=== PATIENT | female | born 1995 | race Caucasian/White ===

== ENCOUNTER 2016-12-10 10:19 | Emergency (ER) | payer BC ==
[2016-12-10] MEDS ORDERED: NS 0.9% 1000 ML* 1,000 ML IV ONE (12:04)
[2016-12-10 12:10] LABS: Hematocrit 41 % (35-47); Hemoglobin 12.8 g/dl (12.0-16.0); Mean Corpuscular HGB Conc 32 g/dl (31-36); Mean Corpuscular Hemoglobin 25 pg (27-31); Mean Corpuscular Volume 80 fL (80-97); Mean Platelet Volume 8 um3 (7.4-10.4); Red Blood Count 5.05 10^6/ul (4.0-5.4); Red Cell Distribution Width 16 % (10.5-15); White Blood Count 8.8 10^3/ul (3.5-10.8)
--- NOTE | 2016-12-10 12:20 | ED ---
Abdominal Pain/Female - HPI Summary HPI Summary: 21 female presents via EMS with complaints of lower abdominal pain and it "feeling hard" that has been on going for the past 3 days. Patient states the pain is a 13/10 and comes and goes described as throbbing. She has not taken any medications for the pain. States nothing makes the pain better or worse. She spoke with OBGYN who had an appointment for her however due to inconvenience was unable to attend so she came here as they were concerned for ovarian cyst. Patient denies vaginal discharge or bleeding. LMP was September of 2016 and she is sexually active, not currently taking control. Patient does however admit her menstrual cycles are very abnormal due to her psych medications, and have always been that way. Recently treated ~ 2 weeks ago for UTI and is on longer having symptoms. Admits to have some blood in her stool and has diarrhea/constipation intermittently. Denies fever/chills. Admits to vomiting once yesterday. Has been able to eat and drink, as she ate cereal this morning. No other complaints, denies chest pain, difficulty breathing, headache and back pain. PMHx significant for depression/psych history. OBGYN in [place]. States there is a chance she is . - History of Current Complaint Chief Complaint: EDAbdPain Stated Complaint: ABD PAIN Time Seen by Provider: 12/10/16 10:39 Hx Obtained From: Patient Hx Last Menstrual Period: September 2016 Timing: Intermittent Episode Lasting Severity Initially: Moderate Severity Currently: Severe Pain Intensity: 13 Pain Scale Used: 0-10 Numeric Location: Diffuse, Discrete At: RUQ, Discrete At: RLQ, Discrete At: LUQ, Discrete At: LLQ, Suprapubic Radiates: No Character: Cramping - throbbing Aggravating Factor(s): Nothing Alleviating Factor(s): Nothing Associated Signs and Symptoms: Positive: Constipation, Blood in Stool, Nausea, Vomiting. Negative: Fever, Cough, Back Pain, Urinary Symptoms, Decreased Appetite, Vaginal Bleeding, Vaginal Discharge - Risk Factors Ectopic Risk Factor: Negative Ovarian Torsion Risk Factor: Negative Allergies/Adverse Reactions: Allergies Allergy/AdvReac Type Severity Reaction Status Date / Time Tetracycline Allergy Hives Verified 12/10/16 12:11 PMH/Surg Hx/FS Hx/Imm Hx Endocrine/Hematology History: Denies: Hx Diabetes Cardiovascular History: Denies: Hx Hypertension Respiratory History: Denies: Hx Asthma Psychiatric History: Reports: Hx Anxiety, Hx Depression, Hx Bipolar Disorder - Surgical History Surgery Procedure, Year, and Place: none - Immunization History Immunizations Up to Date: Yes Infectious Disease History: No Infectious Disease History: Denies: Traveled Outside the [place] in Last 30 Days - Family History Known Family History: Positive: None - Social History Alcohol Use: Occasionally Substance Use Type: Reports: None Smoking Status (MU): Never Smoked Tobacco Review of Systems Constitutional: Negative Eyes: Negative ENT: Negative Cardiovascular: Negative Respiratory: Negative Positive: Abdominal Pain, Vomiting, Diarrhea, Nausea Genitourinary: Negative Skin: Negative Neurological: Negative All Other Systems Reviewed And Are Negative: Yes Physical Exam Triage Information Reviewed: Yes Vital Signs On Initial Exam: Initial Vitals Temp Pulse Resp BP Pulse Ox 98.7 F 73 16 116/74 97 12/10/16 10:33 12/10/16 10:33 12/10/16 10:33 12/10/16 10:33 12/10/16 10:33 Vital Signs Reviewed: Yes Appearance: Positive: Well-Appearing, No Pain Distress, Well-Nourished Skin: Positive: Warm, Skin Color Reflects Adequate Perfusion, Dry. Negative: Cold, Cyanosis @, Diaphoretic Head/Face: Positive: Normal Head/Face Inspection Eyes: Positive: Normal, Conjunctiva Clear ENT: Positive: Normal ENT inspection, Hearing grossly normal, Pharynx normal, TMs normal Neck: Positive: Supple, Nontender, No Lymphadenopathy Respiratory/Lung Sounds: Positive: Clear to Auscultation, Breath Sounds Present. Negative: Rales, Rhonchi, Wheezes Cardiovascular: Positive: Normal, RRR, Pulses are Symmetrical in both Upper and Lower Extremities. Negative: Murmur, Rub Abdomen Description: Positive: Soft, CVA Tenderness (R), CVA Tenderness (L), Other: - diffuse tenderness on palpation throughout quadrants worse on right lower side and suprapubic. patient had a lot of adipose tissue making exam difficult however everywhere that was examined caused patient pain.. Negative: No Organomegaly, Bruit, Distended, Guarding, Hernia @, McBurney's Point Tenderness, Peritoneal Signs, Pulsatile Mass Bowel Sounds: Positive: Present Pelvic Exam: Positive: external exam normal, speculum exam normal - normal cervix without erythema or discharge., bimanual exam normal, no cerv. motion tender, no masses, other - denied std culture testing. Negative: active bleeding, blood, cervicitis, discharge Musculoskeletal: Positive: Normal, Strength/ROM Intact Neurological: Positive: Normal, Sensory/Motor Intact, Alert, Oriented to Person Place, Time Psychiatric: Positive: Affect/Mood Appropriate AVPU Assessment: Alert - Samantha Coma Scale Coma Scale Total: 15 Diagnostics - Vital Signs Vital Signs Temp Pulse Resp BP Pulse Ox 12/10/16 10:35 98.3 F 82 18 116/74 98 12/10/16 10:33 98.7 F 73 16 116/74 97 - Laboratory Lab Results: Lab Results 12/10/16 Range/Units 11:55 WBC 8.8 (3.5-10.8) 10^3/ul RBC 5.05 (4.0-5.4) 10^6/ul Hgb 12.8 (12.0-16.0) g/dl Hct 41 (35-47) % MCV 80 (80-97) fL MCH 25 L (27-31) pg MCHC 32 (31-36) g/dl RDW 16 H (10.5-15) % Plt Count 413 (150-450) 10^3/ul MPV 8 (7.4-10.4) um3 Neut % (Auto) 59.5 (38-83) % Lymph % (Auto) 24.5 L (25-47) % [place] % (Auto) 9.7 H (1-9) % Eos % (Auto) 5.5 (0-6) % Baso % (Auto) 0.8 (0-2) % Absolute Neuts (auto) 5.2 (1.5-7.7) 10^3/ul Absolute Lymphs (auto) 2.1 (1.0-4.8) 10^3/ul Absolute Monos (auto) 0.9 H (0-0.8) 10^3/ul Absolute Eos (auto) 0.5 (0-0.6) 10^3/ul Absolute Basos (auto) 0.1 (0-0.2) 10^3/ul Absolute Nucleated RBC 0.01 10^3/ul Nucleated RBC % 0.1 Result Diagrams: 12/10/16 11:55 12/10/16 11:55 Lab Statement: Any lab studies that have been ordered have been reviewed, and results considered in the medical decision making process. - Radiology abd Xray Interpretation: No Acute Changes Radiology Interpretation Completed By: Radiologist - Ultrasound No standard instances Ultrasound Interpretation: No Acute Changes - NO EVIDENCE FOR ACUTE FINDING. Ultrasound Interpretation Completed By: Radiologist Re-Evaluation - Re-Evaluation First Eval Re-Evaluation Time: 14:15 Change: Improved - had relief of pain after toradol. patient was feeling better Abdominal Pain Fem Course/Dx - Course Course Of Treatment: labs and transvaginal ultrasound obtained. pelvic exam done , affirm culture obtained not highly suscpicious for any infection at this time. Denies STD testing and stated she just was tested in October. patients labs and ultrasound unremarkable besides an elevated CRP. US negative. Urinalysis negative. Patient given toradol and fluids. had relief. No WBC or concern for emergent etiology. Follow up with GI is suggested as this may be something chronic or IBS. Does not relate pain to any certain foods. Pain was minimal to none at d/c. X-ray of abdomen ordered to rule out gas or constipation and was negative. Follow up. Ibuprofen for pain. Aware of worsening signs and symptoms to watch out for. Citrus diet. - Diagnoses Differential Diagnosis: Positive: Appendicitis, Constipation, Diverticulitis, Gall Bladder Disease, Ovarian Cyst, Pelvic Inflammatory Disease, , Urinary Tract Infection, Other - STD, stephanie, BV Provider Diagnoses: Abdominal pain Discharge - Discharge Plan Condition: Stable Disposition: HOME Patient Education Materials: Abdominal Pain (ED) Referrals: Gregorio Stack MD [Primary Care Provider] - Zia Richards MD [Medical Doctor] - Additional Instructions: Ibuprofen for pain only as needed, take with food. Drink plenty of fluids. Call and make an appointment with GI specialist for further work up if pain persists. If new symptoms develop such as fever/chills, increasing localized pain or profuse vomiting please seek medical attention promptly.
[2016-12-10 12:26] LABS: ALT 19 U/L (7-52); AST 14 U/L (13-39); Albumin 3.9 g/dL (3.2-5.2); Alkaline Phosphatase 77 U/L (34-104); Anion Gap 5 mmol/L (2-11); BUN/Creatinine Ratio 11.1 (8-20); Blood Urea Nitrogen 9 mg/dL (6-24); C Reactive Protein 11.12 mg/L (< 5.00); CO2 Carbon Dioxide 22 mmol/L (22-32); Calcium 9.3 mg/dL (8.6-10.3); Chloride 109 mmol/L (101-111); EGFR African American 114.8 (>60); EGFR Non-African American 89.3 (>60); Globulin 3.5 g/dL (2-4); Glucose 85 mg/dL (70-100); Lipase 13 U/L (11.0-82.0); Potassium 4.2 mmol/L (3.5-5.0); Sodium 136 mmol/L (133-145); Total Protein 7.4 g/dL (6.4-8.9)
[2016-12-10] MEDS ORDERED: Ketorolac INJ* 30 MG/ML 1 ML VIAL IV PUSH ONE (12:29)
--- NOTE | 2016-12-10 13:24 | RAD ---
INDICATION: Irregular menses. COMPARISON: There are no prior studies available for comparison. TECHNIQUE: Multiple real-time transvaginal images of the pelvis were obtained. FINDINGS: The uterus is normal in size, shape and echogenicity. The uterus measured 6.5 x 2.9 x 3.6 cm. The endometrial echo measured 0.9 cm in thickness. Note is made of nabothian cysts. There is a small amount of fluid within the endometrial cavity. The right ovary measured 4.2 x 2.7 x 2.3 cm. The left ovary measured 3.4 x 2.0 x 1.9 cm. There is vascular flow within both ovaries. No free intraperitoneal fluid is seen. IMPRESSION: NO EVIDENCE FOR ACUTE FINDING.
[2016-12-10 14:52] LABS: Urine Bilirubin Negative (Negative); Urine Glucose Negative (Negative); Urine Nitrite Negative (Negative)
--- NOTE | 2016-12-10 14:59 | RAD ---
INDICATION: Pain. Constipation. Gas. COMPARISON: None TECHNIQUE: Erect and supine views of the abdomen are submitted. FINDINGS: Bones: There are no acute bony findings. Soft tissues: The soft tissues appear normal. The psoas margins are sharp. Bowel gas pattern: Normal Calcifications: There are no abnormal calcifications. Other: None IMPRESSION: NO ACUTE DIAGNOSTIC FINDINGS.
[2016-12-10 15:27] VITALS: BP 116/74
== END 2016-12-10 15:28 | disposition home or self-care (01) ==
LOC: ED 10:19
DX: R10.9 Unspecified abdominal pain (principal); F31.9 Bipolar disorder, unspecified; F41.9 Anxiety disorder, unspecified
CPT/HCPCS: 36415; 74020; 76830; 80053; 81003; 83605; 83690; 84702; 85025; 86140; 87480; 87510; 87660; 96360; 96374; 99283; J1885

== ENCOUNTER 2017-01-20 16:14 | Inpatient (IN) | payer BC ==
[2017-01-20 16:58] LABS: Hematocrit 37 % (35-47); Mean Corpuscular HGB Conc 32 g/dl (31-36); Mean Corpuscular Hemoglobin 25 pg (27-31); Mean Corpuscular Volume 78 fL (80-97); Mean Platelet Volume 8 um3 (7.4-10.4); Red Blood Count 4.79 10^6/ul (4.0-5.4); Red Cell Distribution Width 16 % (10.5-15); White Blood Count 8.9 10^3/ul (3.5-10.8)
[2017-01-20 17:36] LABS: ALT 13 U/L (7-52); AST 12 U/L (13-39); Albumin 4.1 g/dL (3.2-5.2); Alkaline Phosphatase 83 U/L (34-104); Anion Gap 4 mmol/L (2-11); BUN/Creatinine Ratio 21.1 (8-20); Blood Urea Nitrogen 16 mg/dL (6-24); CO2 Carbon Dioxide 24 mmol/L (22-32); Calcium 9.2 mg/dL (8.6-10.3); Chloride 111 mmol/L (101-111); EGFR African American 123.5 (>60); EGFR Non-African American 96.1 (>60); Glucose 87 mg/dL (70-100); Potassium 3.9 mmol/L (3.5-5.0); Sodium 139 mmol/L (133-145); Total Protein 7.1 g/dL (6.4-8.9)
[2017-01-20 17:52] LABS: Acetaminophen < 15 mcg/mL; Alcohol < 10 mg/dL (<10); Salicylate < 2.50 mg/dL (<30); TSH (Thyroid Stimulating Horm) 0.52 mcIU/mL (0.34-5.60)
[2017-01-20 18:19] LABS: Urine Bacteria Absent (Absent); Urine Bilirubin Negative (Negative); Urine Glucose Negative (Negative); Urine Nitrite Negative (Negative)
[2017-01-20 18:24] LABS: Benzodiazepine Urine Screen None Detected (None Detect)
--- NOTE | 2017-01-20 20:27 | ED ---
Salina Porter Alfonso, scribed for Gregory Chappell MD on 01/20/17 at 1635 . Psychiatric Complaint - HPI Summary HPI Summary: This patient is a 21 year old F BIBA to [facility] with a chief complaint of depression since earlier today. The patient rates the pain 0/10 in severity. Symptoms aggravated by nothing. Symptoms alleviated by nothing. PMHx includes anxiety, depression, and bipolar disorder. Medications reviewed. Patient medically cleared for MHE at 1755. - History Of Current Complaint Chief Complaint: EDMentalHealth Time Seen by Provider: 01/20/17 16:25 Hx Obtained From: Patient Hx Last Menstrual Period: September 2016 Onset/Duration: Sudden Onset, Lasting Hours - earlier today, Still Present Timing: Constant Severity Initially: Moderate Severity Currently: Moderate Character: Depressed Aggravating Factor(s): Nothing Alleviating Factor(s): Nothing Associated Signs And Symptoms: Positive: Negative Related History: Positive For: Prior Psychiatric Issues - Allergies/Home Medications Allergies/Adverse Reactions: Allergies Allergy/AdvReac Type Severity Reaction Status Date / Time Tetracycline Allergy Hives Verified 12/10/16 12:11 Home Medications: Home Medications Dicyclomine CAP* [Bentyl CAP*] 10 mg PO Q6HR PRN 01/20/17 [History Confirmed ] Loxapine Succinate [Loxapine] 10 mg PO QPM 01/20/17 [History Confirmed 01/20/17] Omeprazole CAP* [Prilosec CAP* 20 MG] 40 mg PO BID 01/20/17 [History Confirmed 01/20/17] Oxybutynin XL TAB* [Ditropan Xl TAB*] 5 mg PO DAILY 01/20/17 [History Confirmed 01/20/17] Sertraline* [Zoloft*] 50 mg PO DAILY 01/20/17 [History Confirmed 01/20/17] Topiramate TAB(*) [Topamax 100 mg tab] 200 mg PO BEDTIME 01/20/17 [History Confirmed 01/20/17] lamoTRIgine TAB(*) [LaMICtal TAB(*)] 150 mg PO BEDTIME 01/20/17 [History Confirmed 01/20/17] PMH/Surg Hx/FS Hx/Imm Hx Endocrine/Hematology History: Denies: Hx Diabetes Cardiovascular History: Denies: Hx Hypertension Respiratory History: Denies: Hx Asthma Psychiatric History: Reports: Hx Anxiety, Hx Depression, Hx Bipolar Disorder - Surgical History Surgery Procedure, Year, and Place: none Infectious Disease History: No Infectious Disease History: Denies: Traveled Outside the [place] in Last 30 Days - Family History Known Family History: Positive: Cardiac Disease, Diabetes - Social History Alcohol Use: Occasionally Substance Use Type: Reports: None Smoking Status (MU): Never Smoked Tobacco Review of Systems Negative: Fever Positive: Depressed All Other Systems Reviewed And Are Negative: Yes Physical Exam Triage Information Reviewed: Yes Vital Signs On Initial Exam: Initial Vitals Temp Pulse Resp BP Pulse Ox 98.1 F 72 16 104/65 97 01/20/17 16:20 01/20/17 16:20 01/20/17 16:20 01/20/17 16:20 01/20/17 16:20 Vital Signs Reviewed: Yes Appearance: Positive: Well-Appearing, No Pain Distress Skin: Positive: Warm, Skin Color Reflects Adequate Perfusion, Dry Head/Face: Positive: Normal Head/Face Inspection Eyes: Positive: EOMI, DANITA ENT: Positive: Normal ENT inspection Neck: Positive: Supple, Nontender Respiratory/Lung Sounds: Positive: Clear to Auscultation, Breath Sounds Present Cardiovascular: Positive: RRR Abdomen Description: Positive: Nontender, Soft Bowel Sounds: Positive: Present Musculoskeletal: Positive: Normal, Strength/ROM Intact Neurological: Positive: Normal, Sensory/Motor Intact, Alert, Oriented to Person Place, Time Psychiatric: Positive: Affect/Mood Appropriate - [place] Coma Scale Coma Scale Total: 15 Diagnostics - Vital Signs Vital Signs Temp Pulse Resp BP Pulse Ox 01/20/17 16:20 98.1 F 72 16 104/65 97 - Laboratory Lab Results: Lab Results 01/20/17 01/20/17 01/20/17 Range/Units 16:42 16:42 17:55 WBC 8.9 (3.5-10.8) 10^3/ul RBC 4.79 (4.0-5.4) 10^6/ul Hgb 12.0 (12.0-16.0) g/dl Hct 37 (35-47) % MCV 78 L (80-97) fL MCH 25 L (27-31) pg MCHC 32 (31-36) g/dl RDW 16 H (10.5-15) % Plt Count 373 (150-450) 10^3/ul MPV 8 (7.4-10.4) um3 Neut % (Auto) 65.2 (38-83) % Lymph % (Auto) 21.6 L (25-47) % [place] % (Auto) 9.4 H (1-9) % Eos % (Auto) 3.0 (0-6) % Baso % (Auto) 0.8 (0-2) % Absolute Neuts (auto) 5.8 (1.5-7.7) 10^3/ul Absolute Lymphs (auto) 1.9 (1.0-4.8) 10^3/ul Absolute Monos (auto) 0.8 (0-0.8) 10^3/ul Absolute Eos (auto) 0.3 (0-0.6) 10^3/ul Absolute Basos (auto) 0.1 (0-0.2) 10^3/ul Absolute Nucleated RBC 0 10^3/ul Nucleated RBC % 0 Sodium 139 (133-145) mmol/L Potassium 3.9 (3.5-5.0) mmol/L Chloride 111 (101-111) mmol/L Carbon Dioxide 24 (22-32) mmol/L Anion Gap 4 (2-11) mmol/L BUN 16 (6-24) mg/dL Creatinine 0.76 (0.51-0.95) mg/dL Est GFR ( Amer) 123.5 (>60) Est GFR (Non-Af Amer) 96.1 (>60) BUN/Creatinine Ratio 21.1 H (8-20) Glucose 87 (70-100) mg/dL Calcium 9.2 (8.6-10.3) mg/dL Total Bilirubin 0.20 (0.2-1.0) mg/dL AST 12 L (13-39) U/L ALT 13 (7-52) U/L Alkaline Phosphatase 83 (34-104) U/L Total Protein 7.1 (6.4-8.9) g/dL Albumin 4.1 (3.2-5.2) g/dL Globulin 3.0 (2-4) g/dL Albumin/Globulin Ratio 1.4 (1-3) TSH 0.52 (0.34-5.60) mcIU/mL Beta HCG, Quant < 0.60 mIU/mL Urine Color Urine Appearance Urine pH (5-9) Ur Specific [place] (1.010-1.030) Urine Protein (Negative) Urine Ketones (Negative) Urine Blood (Negative) Urine Nitrate (Negative) Urine Bilirubin (Negative) Urine Urobilinogen (Negative) Ur Leukocyte Esterase (Negative) Urine WBC (Auto) (Absent) Urine RBC (Auto) (Absent) Ur Squamous Epith Cells (Absent) Urine Bacteria (Absent) Urine Glucose (Negative) Salicylates < 2.50 (<30) mg/dL Urine Opiates Screen None detected (None Detect) Acetaminophen < 15 mcg/mL Ur Barbiturates Screen None detected (None Detect) Ur Phencyclidine Scrn None detected (None Detect) Ur Amphetamines Screen None detected (None Detect) U Benzodiazepines Scrn None detected (None Detect) Urine Cocaine Screen None detected (None Detect) U Cannabinoids Screen None detected (None Detect) Serum Alcohol < 10 (<10) mg/dL 01/20/17 Range/Units 17:55 WBC (3.5-10.8) 10^3/ul RBC (4.0-5.4) 10^6/ul Hgb (12.0-16.0) g/dl Hct (35-47) % MCV (80-97) fL MCH (27-31) pg MCHC (31-36) g/dl RDW (10.5-15) % Plt Count (150-450) 10^3/ul MPV (7.4-10.4) um3 Neut % (Auto) (38-83) % Lymph % (Auto) (25-47) % [place] % (Auto) (1-9) % Eos % (Auto) (0-6) % Baso % (Auto) (0-2) % Absolute Neuts (auto) (1.5-7.7) 10^3/ul Absolute Lymphs (auto) (1.0-4.8) 10^3/ul Absolute Monos (auto) (0-0.8) 10^3/ul Absolute Eos (auto) (0-0.6) 10^3/ul Absolute Basos (auto) (0-0.2) 10^3/ul Absolute Nucleated RBC 10^3/ul Nucleated RBC % Sodium (133-145) mmol/L Potassium (3.5-5.0) mmol/L Chloride (101-111) mmol/L Carbon Dioxide (22-32) mmol/L Anion Gap (2-11) mmol/L BUN (6-24) mg/dL Creatinine (0.51-0.95) mg/dL Est GFR ( Amer) (>60) Est GFR (Non-Af Amer) (>60) BUN/Creatinine Ratio (8-20) Glucose (70-100) mg/dL Calcium (8.6-10.3) mg/dL Total Bilirubin (0.2-1.0) mg/dL AST (13-39) U/L ALT (7-52) U/L Alkaline Phosphatase (34-104) U/L Total Protein (6.4-8.9) g/dL Albumin (3.2-5.2) g/dL Globulin (2-4) g/dL Albumin/Globulin Ratio (1-3) TSH (0.34-5.60) mcIU/mL Beta HCG, Quant mIU/mL Urine Color Yellow Urine Appearance Cloudy Urine pH 6.0 (5-9) Ur Specific [place] 1.023 (1.010-1.030) Urine Protein Negative (Negative) Urine Ketones Negative (Negative) Urine Blood Negative (Negative) Urine Nitrate Negative (Negative) Urine Bilirubin Negative (Negative) Urine Urobilinogen Negative (Negative) Ur Leukocyte Esterase Trace H (Negative) Urine WBC (Auto) Trace(0-5/hpf) (Absent) Urine RBC (Auto) Absent (Absent) Ur Squamous Epith Cells Present H (Absent) Urine Bacteria Absent (Absent) Urine Glucose Negative (Negative) Salicylates (<30) mg/dL Urine Opiates Screen (None Detect) Acetaminophen mcg/mL Ur Barbiturates Screen (None Detect) Ur Phencyclidine Scrn (None Detect) Ur Amphetamines Screen (None Detect) U Benzodiazepines Scrn (None Detect) Urine Cocaine Screen (None Detect) U Cannabinoids Screen (None Detect) Serum Alcohol (<10) mg/dL Result Diagrams: 01/20/17 16:42 01/20/17 16:42 Lab Statement: Any lab studies that have been ordered have been reviewed, and results considered in the medical decision making process. Course/Dx - Course Course Of Treatment: MHE PENDING AT SHIFT CHANGE - Differential Dx/Clinical Impression Provider Diagnosis: Mental health problem Discharge - Discharge Plan Condition: Stable Disposition: OTHER Discharge Disposition Comment: . Referrals: Seda LOPEZ,Gregorio [Primary Care Provider] - The documentation as recorded by the Salina marshall Alfonso accurately reflects the service I personally performed and the decisions made by me, Gregory Chappell MD.
[2017-01-20] MEDS ORDERED: Al Hydrox/Mg Hydrox/Simet LIQ* 30 ML UDC PO PRN (23:45)
[2017-01-21] MEDS ORDERED: lamoTRIgine TAB(*) 100 MG PO SCH
[2017-01-21] MEDS: Topiramate TAB(*) 100 MG PO SCH ×2 (00:14→20:04)
[2017-01-21] MEDS: Vitamin THERAPEUTIC TAB PO SCH (08:48)
[2017-01-21] MEDS: Omeprazole CAP* 20 MG PO SCH ×2 (08:48→16:45)
[2017-01-21] MEDS ORDERED: Sertraline* 50 MG TAB PO SCH (09:00)
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
[2017-01-21] MEDS: Acetaminophen TAB* 325 MG PO PRN (13:38)
[2017-01-21] MEDS ORDERED: LOXAPINE 10 MG PO SCH (18:00)
[2017-01-21] MEDS: lamoTRIgine TAB(*) 100 MG PO SCH (20:04)
[2017-01-21] MEDS ORDERED: ARIPiprazole TAB* 15 MG PO SCH (21:00)
[2017-01-21] MEDS ORDERED: risperiDONE TAB* 2 MG PO SCH (21:00)
[2017-01-22] MEDS: Omeprazole CAP* 20 MG PO SCH ×2 (07:44→16:24)
[2017-01-22] MEDS: Vitamin THERAPEUTIC TAB PO SCH (07:44)
[2017-01-22] MEDS ORDERED: ARIPiprazole TAB* 15 MG PO SCH (09:00)
[2017-01-22] MEDS: Acetaminophen TAB* 325 MG PO PRN (09:12)
[2017-01-22] MEDS ORDERED: Dicyclomine CAP* 10 MG PO PRN (11:25)
[2017-01-22] MEDS: Oxybutynin XL TAB* 5 MG PO SCH (11:52)
--- NOTE | 2017-01-22 15:05 | PN ---
Subjective - Subjective Service Type: 68099 Hosp care 15 min low complexity Subjective: Patient noted to be visible in the milieu. She primarily sits alone, but is participating in milieu activities and groups. Patient reports no depression or anxiety. She denies agitation and has had no behavioral issues on the unit. Patient reports med compliance and denies med s/e's. She reports good sleep last night on first dose of Risperdal 2mg. Patient amenable to dose increase to 4mg po qhs. Patient denies SI/HI and AH/VH. Objective - Appearance Appearance: Well Developed/Nourished Dysmorphic Features: No Hygiene: Normal Grooming: Fairly Well Kept - Behavior Psychomotor Activities: Normal Exhibits Abnormal Movement: No - Attitude and Relatedness Attitude and Relatedness: Cooperative Eye Contact: Fair - Speech Quality: Unpressured Latencies: Normal Quantity: Appropriate - Mood Patient's Decription of Mood: "Fine" - Affect Observed Affect: Fair Affect Consistent with: Euthymia - Thought Process Patient's Thought Process: Coherent Thought Content: No Passive Wish, No Suicidal Planning, No Homicidal Ideation, No Paranoid Ideation - Sensorium Experiencing Hallucinations: No, Sensorium is Clear Type of Hallucinations: Visual: No, Auditory: No, Command: No - Level of Consciousness Level of Consciousness: Alert Orientation: Yes Intact, Yes Orientated to Time, Yes Orientated to Place, Yes Orientated to Person - Impulse Control Impulse Control: Intact - Insight and Judgement Insight and Judgement: Fair - Group Participation Particating in Group Activities: Yes - Medication Management Medication Management Adherence: Yes Assessment - Assessment Merits Inpatient Hospitalization: For Immediate Safety, For Stabilization Inpatient DSM-IV Dx: 1. Bipolar 1 d/o, MRE mixed w/PFs. 2. Autism spectrum d/o Plan - Plan Treatment Plan: Name: SOPHY PHILLIPS Birthdate: 1995 [id number] PLAN: ------ 1. Continue admission to [facility] for safety and symptom mx. 2. Patient to continue home medical med regimen as prescribed. 3. Zoloft discontinued as patient likely becoming activated into manic symptoms. 4. Continue Topamax 200mg po qhs for mood stabilization. 5. Continue Lamictal 150mg po qhs for mood stabilization. 6. Increase Risperdal from 2mg to 4mg po qhs for psychotic features. Monitor at this dose over the weekend. Plan to recommend Invmiguelito Magaña [facility] on Wednesday. 7. Collateral information obtained from mom and outpt MH providers. 8. Patient to participate in milieu activities and groups. Medications: Current Medications Acetaminophen (Tylenol Tab*) 650 mg PO Q4H PRN PRN Reason: PAIN or TEMP > 101 F Last Admin: 01/22/17 09:12 Dose: 650 mg Al Hydrox/Mg Hydrox/Simethicone (Maalox Plus*) 30 ml PO Q4H PRN PRN Reason: INDIGESTION Dicyclomine HCl (Bentyl Cap*) 10 mg PO Q6HR PRN PRN Reason: abd pain/spasm Lamotrigine (Lamictal Tab(*)) 150 mg PO BEDTIME [facility] Last Admin: 01/21/17 20:04 Dose: 150 mg Multivitamins (Theragran Tab*) 1 tab PO DAILY [facility] Last Admin: 01/22/17 07:44 Dose: 1 tab Omeprazole (Prilosec Cap*) 40 mg PO BID AC [facility] Last Admin: 01/22/17 07:44 Dose: 40 mg Oxybutynin Chloride (Ditropan Xl Tab*) 5 mg PO DAILY [facility] Last Admin: 01/22/17 11:52 Dose: Not Given Risperidone (Risperdal*) 2 mg PO BEDTIME [facility] Last Admin: 01/21/17 20:05 Dose: 2 mg Topiramate (Topamax(*)) 200 mg PO BEDTIME [facility] Last Admin: 01/21/17 20:04 Dose: 200 mg - Discharge Plan Discharge Plan: Outpatient Follow Up
[2017-01-22] MEDS: risperiDONE TAB* 2 MG PO SCH (20:22)
[2017-01-22] MEDS: Topiramate TAB(*) 100 MG PO SCH (20:22)
[2017-01-22] MEDS: lamoTRIgine TAB(*) 100 MG PO SCH (20:23)
[2017-01-23] MEDS: Omeprazole CAP* 20 MG PO SCH ×2 (07:27→16:33)
[2017-01-23] MEDS: Vitamin THERAPEUTIC TAB PO SCH (08:31)
[2017-01-23] MEDS: Oxybutynin XL TAB* 5 MG PO SCH (08:31)
[2017-01-23] MEDS: lamoTRIgine TAB(*) 100 MG PO SCH (20:48)
[2017-01-23] MEDS: risperiDONE TAB* 2 MG PO SCH (20:48)
[2017-01-23] MEDS: Topiramate TAB(*) 100 MG PO SCH (20:48)
[2017-01-24] MEDS: Omeprazole CAP* 20 MG PO SCH ×2 (07:52→16:32)
[2017-01-24] MEDS: Oxybutynin XL TAB* 5 MG PO SCH (08:46)
[2017-01-24] MEDS: Vitamin THERAPEUTIC TAB PO SCH (08:46)
--- NOTE | 2017-01-24 18:21 | PN ---
Subjective - Subjective Subjective: Sav is visible in the milieu, loud and attention-seeking at times and somatically preoccupied, reports improvement in mood, absence of suicidal ideation or side effects from prescribed medications but quickly became irritable and tearful when I denied her request for discharge before the holiday. Objective - Appearance Appearance: Obese Dysmorphic Features: No Hygiene: Normal Grooming: Well Kept - Behavior Psychomotor Activities: Normal Exhibits Abnormal Movement: No - Attitude and Relatedness Attitude and Relatedness: Needy Eye Contact: Fair - Speech Quality: Unpressured Latencies: Normal Quantity: Copious - Mood Patient's Decription of Mood: "Okay" - Affect Observed Affect: Tearful Affect Consistent with: Dysphoria - Thought Process Patient's Thought Process: Over Inclusive Thought Content: No Passive Wish, No Suicidal Planning, No Homicidal Ideation, No Paranoid Ideation - Sensorium Experiencing Hallucinations: No, Sensorium is Clear - Level of Consciousness Level of Consciousness: Alert Orientation: Yes Intact - Impulse Control Impulse Control: Tenuous - Insight and Judgement Insight and Judgement: Poor - Group Participation Particating in Group Activities: Yes - Medication Management Medication Management Adherence: Yes Assessment - Assessment Merits Inpatient Hospitalization: Consolid[facility] Improvements, For Discharge Planning Inpatient DSM-IV Dx: 1. Bipolar 1 d/o, MRE mixed w/PFs. 2. Autism spectrum d/o Clinical Impression: Needs continued admission for stabilization. Plan - Plan Treatment Plan: Name: SAV PHILLIPS Birthdate: 1995 [id number] Medications: Current Medications Acetaminophen (Tylenol Tab*) 650 mg PO Q4H PRN PRN Reason: PAIN or TEMP > 101 F Last Admin: 01/22/17 09:12 Dose: 650 mg Al Hydrox/Mg Hydrox/Simethicone (Maalox Plus*) 30 ml PO Q4H PRN PRN Reason: INDIGESTION Last Admin: 01/22/17 19:49 Dose: 30 ml Dicyclomine HCl (Bentyl Cap*) 10 mg PO Q6HR PRN PRN Reason: abd pain/spasm Last Admin: 01/22/17 19:49 Dose: 10 mg Lamotrigine (Lamictal Tab(*)) 150 mg PO BEDTIME [facility] Last Admin: 01/23/17 20:48 Dose: 150 mg Multivitamins (Theragran Tab*) 1 tab PO DAILY [facility] Last Admin: 01/24/17 08:46 Dose: 1 tab Omeprazole (Prilosec Cap*) 40 mg PO BID AC [facility] Last Admin: 01/24/17 16:32 Dose: 40 mg Oxybutynin Chloride (Ditropan Xl Tab*) 5 mg PO DAILY [facility] Last Admin: 01/24/17 08:46 Dose: 5 mg Risperidone (Risperdal*) 4 mg PO BEDTIME [facility] Last Admin: 01/23/17 20:48 Dose: 4 mg Topiramate (Topamax(*)) 200 mg PO BEDTIME [facility] Last Admin: 01/23/17 20:48 Dose: 200 mg - Discharge Plan Discharge Plan: Outpatient Follow Up Outpatient Program: [facility]
[2017-01-24] MEDS: Topiramate TAB(*) 100 MG PO SCH (20:18)
[2017-01-24] MEDS: lamoTRIgine TAB(*) 100 MG PO SCH (20:18)
[2017-01-24] MEDS: risperiDONE TAB* 2 MG PO SCH (20:18)
[2017-01-25] MEDS: Omeprazole CAP* 20 MG PO SCH ×2 (07:35→16:12)
[2017-01-25 08:50] VITALS: BP 117/68
[2017-01-25] MEDS: Oxybutynin XL TAB* 5 MG PO SCH (09:35)
[2017-01-25] MEDS: Vitamin THERAPEUTIC TAB PO SCH (09:35)
[2017-01-25] MEDS: Topiramate TAB(*) 100 MG PO SCH (20:47)
[2017-01-25] MEDS: lamoTRIgine TAB(*) 100 MG PO SCH (20:47)
[2017-01-25] MEDS: risperiDONE TAB* 2 MG PO SCH (20:48)
[2017-01-26] MEDS: Acetaminophen TAB* 325 MG PO PRN (02:57)
[2017-01-26] MEDS: Omeprazole CAP* 20 MG PO SCH (07:26)
[2017-01-26] MEDS: Vitamin THERAPEUTIC TAB PO SCH (07:26)
[2017-01-26] MEDS: Oxybutynin XL TAB* 5 MG PO SCH (07:26)
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
--- NOTE | 2017-01-26 11:45 | PN ---
[facility]: Group Therapy Note - Service Type Service Type: 47391 Group Psychotherapy - Cognitive Behavioral Group Therapy ( CBT):Patient was attentive and participatory in CBT programming this morning, and remained in good behavioral control. Patient expressed positive insights regarding relevant treatment interventions and goals.
[2017-01-26 13:05] LABS: HDL Cholesterol 33.6 mg/dL
== END 2017-01-26 14:45 | disposition home or self-care (01) | DRG 753 ==
LOC: ED 16:14 → BSU 22:57
PROVIDERS: ADMIT Psychiatry & Neurology Psychiatry; ATTEND Psychiatry & Neurology Psychiatry
DX: F31.64 Bipolar disorder, current episode mixed, severe, with psychotic features (principal); R45.851 Suicidal ideations; F84.0 Autistic disorder; F91.3 Oppositional defiant disorder; Z81.8 Family history of other mental and behavioral disorders
CPT/HCPCS: 36415; 80053; 80061; 80307; 80320; 80329; 81003; 81015; 83036; 84443; 84702; 85025; 87086; 99222; A9270-GY; G0480